=== PATIENT | male | born 1975 | race Caucasian/White ===

== ENCOUNTER 2018-02-23 19:22 | Observation (INO) ==
[~2018-02-23 19:22] MED LIST: Famotidine PF Inj 20 MG/2 ML Vial ONE
[2018-02-23] MEDS ORDERED: Bupivacaine/Epinephrine Inj 0.25% 50 ML Vial ONE (20:19)
[2018-02-23] MEDS ORDERED: Levofloxacin 500 mg Premix Inj 500 MG/100 ML PIGGYBACK IV.SIG ONE ×2 (20:51→20:58)
--- NOTE | 2018-02-23 20:57 | P.HPGS ---
History of Present Illness Service: General Surgery Primary Care Physician: Romero Matthew MD, PhD Chief Complaint: Abdominal pain History of Present Illness: 42 yo M who developed abdominal this am about 7 am. He then ran 3 miles but around noon the pain increased in severity and localized to the right lower quadrant. He was evaluated by his PCP Dr. Matthew who had concerns for appendicitis and CT a/p was ordered, which confirmed the diagnosis. He has PMH of HTN and PSH of vasectomy. - Diagnosis (1) Acute appendicitis Review of Systems All other systems reviewed negative except as stated in HPI [facility] - Medical History Medical History: Medical History (Last Updated 02/23/18 @ 20:54 by Tay Lennon MD) Hypertension (Acute) - Social History I have reviewed the patient's Social History: Yes Medications and Allergies Active Medications: Home meds: amlodipine, procardia Exam Narrative: GENERAL: Awake and alert. No acute distress. Cooperative. HEAD: Normocephalic. Atraumatic. EYES: Pupils equal round and reactive to light bilaterally. No scleral icterus. ENT: Moist oral mucosa. NECK: Trachea midline. CHEST: Lungs clear to auscultation bilaterally with no wheezing or rhonchi. No respiratory distress. CARDIOVASCULAR: Regular rate and rhythm. ABDOMEN: + rebound in RLQ, severe ttp in RLQ, otherwise soft and ntd EXTREMITIES: No cyanosis or edema. SKIN: Warm, dry, nonjaundiced. Results - Imaging CT scan - abdomen: report reviewed, image reviewed CT scan - pelvis: report reviewed, image reviewed Caprini VTE Risk Assessment Caprini VTE Risk Assessment: No/Low Risk (score <= 1) Caprini Risk Assessment Model: Point Value = 1 Point Value = 2 Point Value = 3 Point Value = 5 Age 41-60 Minor surgery BMI > 25 kg/m2 Swollen legs Varicose veins or History of unexplained or recurrent spontaneous Oral contraceptives or hormone replacement Sepsis (< 1 month) Serious lung disease, including pneumonia (< 1 month) Abnormal pulmonary function Acute myocardial infarction Congestive heart failure (< 1 month) History of inflammatory bowel disease Medical patient at bed rest Age 61-74 Arthroscopic surgery Major open surgery (> 45 min) Laparoscopic surgery (> 45 min) Malignancy Confined to bed (> 72 hours) Immobilizing plaster cast Central venous access Age >= 75 History of VTE Family history of VTE Factor V Leiden Prothrombin [id number] Lupus anticoagulant Anticardiolipin antibodies Elevated serum homocysteine Heparin-induced thrombocytopenia Other congenital or acquired thrombophilia Stroke (< 1 month) Elective arthroplasty Hip, pelvis, or leg fracture Acute spinal cord injury (< 1 month) Prophylaxis Regimen: Total Risk Factor Score Risk Level Prophylaxis Regimen 0-1 Low Early ambulation 2 Moderate Order ONE of the following: *Sequential Compression Device (SCD) *Heparin 5000 units SQ BID 3-4 Higher Order ONE of the following medications: *Heparin 5000 units SQ TID *Enoxaparin/Lovenox 40 mg SQ daily (WT < 150 kg, CrCl > 30 mL/min) *Enoxaparin/Lovenox 30 mg SQ daily (WT < 150 kg, CrCl > 10-29 mL/min) *Enoxaparin/Lovenox 30 mg SQ BID (WT < 150 kg, CrCl > 30 mL/min) AND/OR *Sequential Compression Device (SCD) 5 or more Highest Order ONE of the following medications: *Heparin 5000 units SQ TID (Preferred with Epidurals) *Enoxaparin/Lovenox 40 mg SQ daily (WT < 150 kg, CrCl > 30 mL/min) *Enoxaparin/Lovenox 30 mg SQ daily (WT < 150 kg, CrCl > 10-29 mL/min) *Enoxaparin/Lovenox 30 mg SQ BID (WT < 150 kg, CrCl > 30 mL/min) AND *Sequential Compression Device (SCD) Assessment and Plan - Assessment (1) Acute appendicitis Code(s): K35.80 - Unspecified acute appendicitis Status: Acute - Plan Proceed to operating room for laparoscopic appendectomy, possible open. Case discussed in detail with the patient and he understands and desires to proceed.
[2018-02-23] MEDS ORDERED: Neostigmine Inj 5 MG/5 ML Syringe IV.PUSH ONE (21:10)
[2018-02-23] MEDS ORDERED: Lidocaine PF 1% Inj 5 ML Syringe OTHER ONE (21:10)
[2018-02-23] MEDS ORDERED: Glycopyrrolate Inj 1 MG/5 ML Syringe IV.PUSH ONE (21:10)
[2018-02-23] MEDS ORDERED: Naloxone Inj 0.4 MG/ML Vial IV.PUSH PRN (21:58)
[2018-02-23] MEDS ORDERED: Post-op Orders (for Pharmacy) OTHER ONE (21:58)
--- NOTE | 2018-02-23 22:04 | P.OP ---
- Preoperative Diagnosis (1) Acute appendicitis - Postoperative Diagnosis (1) Acute appendicitis Date of procedure: 02/23/18 Procedure: Laparoscopic appendectomy Anesthesia: DONNELL Surgeon: aTy Lennon MD [employer] Clerk: Manuelito LR Estimated blood loss (mL): 5 Pathology: other (appendix) Operation and Findings: EBL: 5 cc Complications: None apparent Operative findings: Distal portion of the appendix inflamed and distended. Some cloudy fluid in the right lower quadrant. No gangrene or perforation. Procedure in detail: The patient was taken to the operating room placed in the supine position with left arm tucked. General endotracheal anesthesia was induced and the abdomen was prepped and draped in usual sterile fashion. Surgical timeout was performed to verify correct patient procedure and site. Perioperative antibiotics were administered as necessary. Local anesthetic was injected in the skin and subcutaneous tissue superior to the umbilicus and a 5 mm incision made. Using the 5 mm Optiview trocar with laparoscope the abdomen was directly entered. The abdomen was then insufflated to 15 mmHg with CO2 gas which the patient tolerated well. The patient was then placed in Trendelenburg position and turned slightly to the left. A 12 mm port was placed under laparoscopic visualization in the left lower quadrant and another 5 mm port in the suprapubic area. Attention was turned to the right lower quadrant. The appendix was immediately visualized. The distal portion was inflamed and distended. There was a small amount of cloudy fluid in the right lower abdomen but no gangrene and no perforation.. The mesoappendix was taken down with the Harmonic scalpel. Two #1 PDS Endoloops were placed at the base the appendix and the appendix was transected with Harmonic scalpel. It was then removed using an Endo Catch bag. The appendiceal stump was intact with no leakage. The right lower quadrant was irrigated.. The abdomen was allowed to desufflate. The fascia at the 12 mm port site was closed with a 0 Vicryl suture using laparoscopic fascial closure device. Skin closed with subcuticular Monocryl as well as Dermabond. The patient tolerated the procedure well was extubated and taken to PACU in stable condition.
[2018-02-23] MEDS ORDERED: fentaNYL Citrate Inj 100 MCG/2 ML Ampul ONE (22:21)
[2018-02-23] MEDS: Ketorolac Inj 30 MG/ML (IVP) Vial IV.PUSH SCH (23:34)
[2018-02-24] MEDS: Ketorolac Inj 30 MG/ML (IVP) Vial IV.PUSH SCH ×2 (04:39→09:15)
--- NOTE | 2018-02-24 09:00 | P.PNGS ---
Subjective Interval history: Tolerating diet. Pain at incisions. Physical Exam Vital signs: Vital Signs 02/23/18 21:03 02/23/18 22:14 02/23/18 22:15 Temperature 98.7 F 97.7 F 97.7 F Pulse Rate 70 94 H 94 H Respiratory Rate 20 18 18 Blood Pressure 167/102 H 129/87 134/83 Pulse Oximetry 100 93 L 93 L 02/23/18 22:30 02/23/18 22:45 02/23/18 23:00 Temperature 97.7 F 97.7 F 97.7 F Pulse Rate 73 70 68 Respiratory Rate 18 18 18 Blood Pressure 120/65 123/69 127/73 Pulse Oximetry 93 L 91 L 97 02/23/18 23:07 02/24/18 00:00 02/24/18 04:00 Temperature 97.9 F 98.3 F Pulse Rate 69 70 Respiratory Rate 17 17 Blood Pressure 133/78 118/70 Pulse Oximetry 97 96 94 L 02/24/18 08:00 Temperature 98.4 F Pulse Rate 62 Respiratory Rate 18 Blood Pressure 121/70 Pulse Oximetry 94 L Intake & Output 02/23/18 02/24/18 02/24/18 18:59 06:59 18:59 Intake Total 850 / 850 Output Total 3 / 3 Balance 847 / 847 Weight 81.6 kg Intake: IV 200 / 200 Levaquin 500 mg Premix Inj 500 100 / 100 mg In 100 ml @ 0 mls/hr IV.SIG .STK-MED ONE Rx#:[id number] Flagyl 500 MG Inj 100 ML @ 0 100 / 100 mls/hr IV.SIG .STK-MED ONE Rx#: [id number] Anesthesia Amount 650 / 650 Output: Estimated Blood Loss 3 / 3 Other: # Voids 2 Date of Last Bowel Movement 02/23/18 Weight On Admission 81.647 kg Narrative: NAD Abd: soft, inc c/d/i bandaids in place Assessment and Plan - Assessment (1) Acute appendicitis Code(s): K35.80 - Unspecified acute appendicitis Status: Acute - Plan POD 1 s/p lap appy for uncomplicated appendicitis. Doing well post op. Good condition. D/c home. Reg diet. F/u in two weeks. Activity as tolerated. No rx.
== END 2018-02-24 10:46 | disposition home or self-care (01) ==
LOC: HPAC 19:22 → HOR 19:22 → N06 02-24 00:01
PROVIDERS: ADMIT Surgery; ATTEND Surgery
PROC: LAPAPPY (ICD-10-PCS; 2018-02-23 21:10)